=== PATIENT | female | born 1960 | race Caucasian/White ===

== ENCOUNTER 2021-02-11 02:43 | Inpatient (IN) | payer BC ==
[~2021-02-11] VITALS: Ht 162.6 cm; Wt 48.6 kg
[2021-02-11] MEDS ORDERED: ONDANSETRON ODT 4 MG PO PRN (03:30)
[2021-02-11] MEDS ORDERED: DOCUSATE 100 MG CAPSULE PO PRN (03:30)
[2021-02-11] MEDS ORDERED: ACETAMINOPHEN 325 MG TABLET PO PRN (03:30)
[2021-02-11] MEDS ORDERED: POLYETHYLENE GLYCOL 17 GM PACKET PO PRN (03:30)
[2021-02-11] MEDS ORDERED: PLEASE ENTER HEIGHT AND WEIGHT MC SCH (11:00)
[2021-02-11 12:05] VITALS: BP 103/71
[2021-02-11 14:00] LABS: LDL/HDL RATIO 2.5 (0.5-3.0)
[2021-02-11] MEDS ORDERED: OLANZAPINE 10 MG INJ IM ONE ×2 (14:44→15:00)
[2021-02-11] MEDS ORDERED: OLANZAPINE 5 MG TABLET ONE (14:52)
[2021-02-11] MEDS ORDERED: OLANZAPINE 5 MG TABLET PO ONE (15:30)
[2021-02-11 18:44] VITALS: BP 101/63
[2021-02-11] MEDS ORDERED: LORazepam 1MG TABLET PO ONE (23:00)
[2021-02-12] MEDS: OLANZAPINE 5 MG TABLET PO PRN (04:16)
[2021-02-12 06:26] LABS: MICROSCOPIC INDICATED
[2021-02-12 07:21] VITALS: BP 101/68
[2021-02-12] MEDS: LORazepam 0.5MG TABLET PO PRN ×2 (09:38→17:59)
[2021-02-12] MEDS ORDERED: OLANZAPINE 10 MG INJ IM ONE (10:00)
[2021-02-12 19:31] VITALS: BP 112/75
[2021-02-12 21:34] VITALS: BP 103/66
[2021-02-13 07:36] VITALS: BP 114/71
[2021-02-13] MEDS: LORazepam 0.5MG TABLET PO PRN ×2 (08:27→14:54)
[2021-02-13] MEDS: OLANZAPINE 5 MG TABLET PO PRN (11:18)
[2021-02-13] MEDS ORDERED: OLANZAPINE 5 MG TABLET PO ONE (19:09)
[2021-02-13] MEDS ORDERED: LORazepam 0.5MG TABLET PO ONE (19:09)
[2021-02-13 19:19] VITALS: BP 113/70
[2021-02-13] MEDS ORDERED: OLANZAPINE 5 MG TABLET PO SCH (21:00)
[2021-02-13] MEDS: OLANZAPINE 5 MG TABLET PO SCH (21:15)
[2021-02-14 07:19] VITALS: BP 92/64
[2021-02-14] MEDS: OLANZAPINE 5 MG TABLET PO SCH ×2 (11:16→20:06)
[2021-02-14] MEDS: LORazepam 0.5MG TABLET PO PRN ×2 (11:16→17:49)
[2021-02-14] MEDS: DIVALPROEX 125 MG CAP.SPRINK PO SCH ×3 (11:55→20:06)
[2021-02-14] MEDS ORDERED: PLEASE ENTER HEIGHT AND WEIGHT MC SCH (12:00)
[2021-02-14] MEDS: SULFAMETH./TRIMETHOPRIM DS 800MG/160MG TABLET PO SCH ×2 (15:05→20:06)
[2021-02-14 19:41] VITALS: BP 99/69
[2021-02-15 07:52] VITALS: BP 99/70
[2021-02-15] MEDS: DIVALPROEX 125 MG CAP.SPRINK PO SCH ×3 (08:34→20:02)
[2021-02-15] MEDS: SULFAMETH./TRIMETHOPRIM DS 800MG/160MG TABLET PO SCH ×2 (08:34→20:02)
[2021-02-15 18:35] VITALS: BP_SYST 100; BP_SYST 111; BP_DIAS 67; BP_DIAS 68
[2021-02-15] MEDS: OLANZAPINE 5 MG TABLET PO SCH (20:02)
[2021-02-15] MEDS: LORazepam 0.5MG TABLET PO PRN (20:02)
[2021-02-15] MEDS: OLANZAPINE 5 MG TABLET PO PRN (21:49)
[2021-02-16] MEDS: LORazepam 0.5MG TABLET PO PRN ×3 (02:30→23:05)
[2021-02-16 07:42] VITALS: BP 118/70
[2021-02-16] MEDS: SULFAMETH./TRIMETHOPRIM DS 800MG/160MG TABLET PO SCH ×2 (08:44→20:27)
[2021-02-16] MEDS: DIVALPROEX 125 MG CAP.SPRINK PO SCH ×3 (08:44→20:28)
[2021-02-16] MEDS ORDERED: OLANZAPINE 10 MG INJ IM ONE ×2 (13:51→13:54)
[2021-02-16 19:50] VITALS: BP 125/75
[2021-02-16] MEDS: DOXEPIN 25 MG CAPSULE PO SCH (20:28)
[2021-02-16] MEDS: OLANZAPINE 5 MG TABLET PO SCH (20:28)
[2021-02-17] MEDS: OLANZAPINE 5 MG TABLET PO PRN ×2 (01:06→09:38)
[2021-02-17] MEDS: LORazepam 0.5MG TABLET PO PRN ×2 (09:10→23:25)
[2021-02-17] MEDS: DIVALPROEX 125 MG CAP.SPRINK PO SCH ×3 (09:11→20:17)
[2021-02-17 19:30] VITALS: BP 130/85
[2021-02-17] MEDS: OLANZAPINE 5 MG TABLET PO SCH (20:17)
[2021-02-17] MEDS: DOXEPIN 25 MG CAPSULE PO SCH (20:17)
[2021-02-17] MEDS ORDERED: ZIPRASIDONE 20 MG INJ IM ONE ×2 (20:55→21:00)
[2021-02-18 07:43] VITALS: BP 99/72
[2021-02-18] MEDS: DIVALPROEX 125 MG CAP.SPRINK PO SCH ×3 (08:39→20:20)
[2021-02-18] MEDS: OLANZAPINE 5 MG TABLET PO SCH ×2 (11:46→20:20)
[2021-02-18 19:26] VITALS: BP 101/68
[2021-02-18] MEDS: DOXEPIN 25 MG CAPSULE PO SCH (20:20)
[2021-02-18] MEDS: LORazepam 0.5MG TABLET PO PRN (20:20)
[2021-02-19] MEDS: LORazepam 0.5MG TABLET PO PRN ×3 (02:23→20:24)
[2021-02-19 07:40] VITALS: BP 94/65
[2021-02-19] MEDS: DIVALPROEX 125 MG CAP.SPRINK PO SCH ×2 (09:02→12:30)
[2021-02-19] MEDS: OLANZAPINE 5 MG TABLET PO SCH ×2 (09:02→20:25)
[2021-02-19] MEDS ORDERED: DIVALPROEX 125 MG CAP.SPRINK PO SCH (17:00)
[2021-02-19 19:31] VITALS: BP 109/75
[2021-02-19] MEDS: DOXEPIN 25 MG CAPSULE PO SCH (20:24)
[2021-02-20] MEDS: OLANZAPINE 5 MG TABLET PO PRN (00:57)
[2021-02-20 07:45] VITALS: BP 90/61
[2021-02-20] MEDS: DIVALPROEX 125 MG CAP.SPRINK PO SCH ×2 (08:54→12:16)
[2021-02-20] MEDS: OLANZAPINE 5 MG TABLET PO SCH (08:54)
[2021-02-20] MEDS: LORazepam 0.5MG TABLET PO PRN (08:54)
[2021-02-20] MEDS ORDERED: OLAN5TAB9 PO (09:04)
[2021-02-20] MEDS ORDERED: DOXE25CA PO (09:04)
[2021-02-20] MEDS ORDERED: DIVA125C2 PO ×2 (09:04)
== END 2021-02-20 16:34 | disposition home or self-care (01) | DRG 885 ==
LOC: 3E 10:31
PROVIDERS: ADMIT Psychiatry & Neurology Psychosomatic Medicine; ATTEND Psychiatry & Neurology Psychosomatic Medicine
DX: F31.64 Bipolar disorder, current episode mixed, severe, with psychotic features (principal); F23 Brief psychotic disorder; F17.210 Nicotine dependence, cigarettes, uncomplicated; F09 Unspecified mental disorder due to known physiological condition; Z63.4 Disappearance and death of family member
CPT/HCPCS: 36415; 80061; 81001; 82607; 87077; 87086; 87186; 93005; J3486; 92523-GN